=== PATIENT | female | born 1995 | race Caucasian/White ===

== ENCOUNTER 2017-05-19 18:52 | Emergency (ER) | payer OTHER ==
[~2017-05-19] VITALS: Ht 165.1 cm; Wt 112.2 kg
[2017-05-19 19:52] LABS: ADD MIUA? YES; BILIRUBIN NEGATIVE; BLOOD NEGATIVE; COLOR YELLOW ((YELLOW)); GLUCOSE (STRIP) NEGATIVE; KETONES NEGATIVE; LEUKOCYTES NEGATIVE; NITRITE NEGATIVE; PROTEIN (STRIP) NEGATIVE; SPECIFIC GRAVITY 1.024 (1.000-1.030); UROBILINOGEN 0.2 MG/DL (0.2-1.0)
[2017-05-19 20:03] LABS: BACTERIA RARE /HPF; CALCIUM OXALATE CRYSTALS 1+ /HPF; EPITHELIAL CELLS 1+ /HPF; MUCUS 1+ /LPF; RED BLOOD CELLS 0-5 /HPF (0-5); UCUL ADDED? NO; WHITE BLOOD CELLS 0-5 /HPF (0-5)
[2017-05-19 20:52] LABS: SERUM ETHYL ALCOHOL < 10 mg/dL
[2017-05-19 21:00] LABS: QUANTITATIVE HCG < 4.0 MIU/ML
[2017-05-19 22:12] VITALS: BP 132/87
[2017-05-19] MEDS ORDERED: FLUCONAZOLE150 MG PO (22:14)
[2017-05-21 12:02] LABS: CHLAMYDIA TRACHOMATIS NEGATIVE; NEISSERIA GONORRHOEAE NEGATIVE
[2017-05-22 12:08] LABS: TREPONEMA ANTIBODY NEGATIVE (NEGATIVE)
== END 2017-05-19 22:14 | disposition home or self-care (01) ==
LOC: EME 18:52
PROVIDERS: Emergency Medicine
DX: T76.21XA Adult sexual abuse, suspected, initial encounter (principal)
CPT/HCPCS: 81003; 84702; 86780; 87491; 87591; 99281; 99284; G0480; J0696